=== PATIENT | male | born 1955 | race Caucasian/White ===

== ENCOUNTER → 2017-04-16 | Outpatient (CLI) | payer OTHER ==
[~2017-04-16] VITALS: Ht 170.2 cm; Wt 88.0 kg
[~2017-04-16] MED LIST: FLEXERIL PO; FLUTICASONE PRO16 GM NS; MOBIC15 MG PO; OMEPRAZOLE 20 M20 M1 PO; PRAVACHOL40 MG PO; ZYRTEC10 M5 PO
--- NOTE | ~2017-04-16 | HPC ---
[facility] [address] [place] [address] PAIN MANAGEMENT CONSULTATION Name: JONNA PAULINO Room #: REG [facility]..#: [id number] Admission: 04/16/17 Attend Phys: Duane Jim DO Discharge: Date of : 55 Report #: [id number] THIS REPORT FOR: //name// CC: Dr. Tanya Jim The patient is a very pleasant 62-year-old gentleman seen in consultation at the request of Dr. Martínez for consideration for epidural injection for ongoing lumbar radicular pain. The patient notes that he has had chronic back and right radicular pain, actually had epidural injections done blindly back in 1989 with some efficacy. Notes symptoms gradually began to recur without specific antecedent trauma and overuse. In December, his symptoms became quite problematic, symptoms eclipsing p.o. Tylenol and OTC NSAID. Pain is primarily low back, lateral thighs, left greater than right down to the feet. Notes some subjective paresthesia with episodic tingling into the medial 3 toes, right greater than left leg. Again, pain is a little more left than right. Denies bowel or bladder continence change or saddle anesthesia. Rates pain anywhere from 4-10 on a VAS. He is started on meloxicam, Flexeril and tramadol in December with only nominal efficacy. Uses an occasional massage. Works in the [employer] presently. Does daily stretching and effectively accomplishing reasonable PT, having failed conservative therapy, presents with ongoing pain that he describes as constant, shooting, aching, pulling, throbbing, sharp and stabbing. REVIEW OF SYSTEMS: Complete review of systems attached to chart and gone over with the patient. He is , seen in the company of his who is supportive. He does not smoke, drink alcohol to excess. History of hypertension, treated with pravastatin, some seasonal rhinitis for which he uses Flonase. Gastroesophageal reflux for which he uses omeprazole. Has had ENT surgery in the distant past. Retired for 30 years in [employer], currently works at [employer] in the [employer]. Continues to work despite pain. Pain impact score averages about 49/70. Physical exam shows a 5 feet 7 inch, 194 pound gentleman, BMI is 30.4 kilograms per meter squared. Blood pressure of 152/99, pulse 60, respirations 16. Cranial nerves 2-12 are grossly intact. Pupils are equal and reactive to light and accommodation. Extraocular muscles are intact. There is no nystagmus or lateral gaze deviation. Thyroid is modestly enlarged, no nodules are noted. Cervical range of motion is full. Upper extremity strength is preserved. Heart is regular and rhythmical without murmur. He does a physiologically split S2, lungs are clear to auscultation. Has somewhat of an endomorphic build with little truncal obesity. Lumbar flexion is limited to 45 degrees. Gait is tandem. Lower extremity strength is generally preserved with the exception that left leg shows slight decreased hip flexion, lower extremity extension. [address] [address] PAIN MANAGEMENT CONSULTATION Name: LORAJONNA Room #: [facility]#: [id number] Admission: 04/16/17 Attend Phys: Duane Jim DO Discharge: Date of : 55 Report #: [id number] Patellar and Achilles reflexes are preserved. Straight leg raise is grossly positive bilaterally at 30 degrees. Skin integument is intact. Diagnostic studies were reviewed including MRI of the lumbar spine from 01/13/2017 noting L4-L5 to have an 8 x 5 x 8 mm extruded fragment extending caudally in the anterior vertebral space from L4-L5. There is moderate left L3-L4 neural foraminal narrowing as well. ASSESSMENT: Symptomatic lumbar radiculopathy by clinical exam and history, recurrence of prior chronic issue, having failed conservative therapy for greater than 3 months. Positive neural tensioning symptoms correlating with diagnostic findings. RECOMMENDATIONS: 1. Continue meloxicam p.o. 2. Epidural injection under fluoroscopy today. 3. Follow up in 3 weeks for reevaluation. Cancel if greater than 80% improvement. Thank you for allowing me to participate in the patient's care. I will keep you abreast of his progress. PROCEDURE NOTE: Lumbar epidural injection under fluoroscopy. PROCEDURE: Lumbar epidural steroid injection. PROCEDURE NOTE: After both written and informed consent to include risk of spinal cord damage, increased pain, weakness and dural puncture, the patient was taken to the fluoroscopy suite, placed in the prone position. After sterile prep and drape, a skin wheal with lidocaine was raised. A 22-gauge epidural Tuohy needle was inserted in the midline at L4-L5 with good loss to resistance. Negative aspiration for cerebrospinal fluid or blood was noted. Then 1 mL of Omnipaque under biplanar fluoroscopy showed good spread within the epidural space. This was followed with 80 mg of triamcinolone plus 1 mL of 1.5% preservative-free Xylocaine, 0.5 mL Xylocaine was then injected to flush the needle; it was removed. The patient was monitored for an appropriate period of time and discharged in good and stable condition. <ELECTRONICALLY SIGNED> By: Duane Jim DO 04/17/17 1225 [id number] Duane Jim DO /nt
[2017-04-16 08:26] VITALS: BP 152/99
== END | disposition home or self-care (01) ==
LOC: PAIN 06:51
DX: M54.16 Radiculopathy, lumbar region (principal); G89.29 Other chronic pain; I10 Essential (primary) hypertension; K21.9 Gastro-esophageal reflux disease without esophagitis; Z98.890 Other specified postprocedural states; Z79.899 Other long term (current) drug therapy

== ENCOUNTER → 2017-12-10 | Outpatient (CLI) | payer OTHER ==
[~2017-12-10] VITALS: Ht 170.2 cm; Wt 90.7 kg
[~2017-12-10] MED LIST changes: +NORVASC5 MG PO
--- NOTE | ~2017-12-10 | HPC ---
[facility] [place] [address] [place] [address] PAIN MANAGEMENT CONSULTATION Name: JONNA PAULINO Room #: [facility] [id number] Admission: 12/10/17 Attend Phys: Duane Jim DO Discharge: Date of : 55 Report #: [id number] THIS REPORT FOR: //name// CC: GWEN Jim DATE OF SERVICE: 12/10/2017 The patient is a 62-year-old gentleman, prior seen in the Pain [facility] on 11/19/2017. He is given a second lumbar epidural injection at that time. He prior had his initial injection back in March. Second injection afforded good yet transient relief symptoms have begun to recur. It is in the low back, left anterior thigh. Pain is exacerbated with standing, walking, and bending. Rates the pain at 3 on a VAS. PHYSICAL EXAMINATION: Shows a 62-year-old gentleman. Blood pressure 152/98, pulse 75, respirations 16, BMI is 31.3 kg/m2. Rises from chair using the armrest, nominally antalgic gait. Does have objective decreased left hip flexion and lower extremity extension strength compared to the right. Patellar reflex is diminished on this side. ASSESSMENT: Symptomatic lumbar radiculopathy secondary to left L3 radicular pain. Does note L3-L4 to have moderate left neural foraminal stenosis as well as extruded disk fragment anterior to the space at L4-L5. RECOMMENDATION: Repeat epidural injection under fluoroscopy today at this time at L3-L4, left to midline. If this does not afford significant improvement of baseline function, we will have the patient follow up with Dr. Gwen Hoff for consideration for referral to Neurosurgery. Thank you for allowing me to participate in the patient's care. PROCEDURE: Lumbar epidural injection under fluoroscopy. PROCEDURE NOTE: After both written and informed consent to include risk of spinal cord damage, increased pain, weakness and dural puncture, the patient was taken to the fluoroscopy suite, placed in the prone position. After sterile prep and drape, a skin wheal with lidocaine was raised. A 22-gauge epidural Tuohy needle was inserted in the midline at L3-L4 with good loss to resistance. Negative aspiration for cerebrospinal fluid or blood was noted. Then 1 mL of Omnipaque under biplanar fluoroscopy showed good spread within the epidural space. This was followed with 80 mg of triamcinolone plus 1 mL of 1.5% preservative-free Xylocaine, 0.5 mL Xylocaine was then injected to flush the [address] [address] PAIN MANAGEMENT CONSULTATION Name: JONNA PAULINO Room #: REG [facility]#: [id number] Admission: 12/10/17 Attend Phys: Duane Jim DO Discharge: Date of : 55 Report #: [id number] needle; it was removed. The patient was monitored for an appropriate period of time and discharged in good and stable condition. <ELECTRONICALLY SIGNED> By: Duane Jim DO 12/12/17 [id number] Duane Jim DO /nt
[2017-12-10 13:44] VITALS: BP 152/98
== END | disposition home or self-care (01) ==
LOC: PAIN 07:07
DX: M51.16 Intervertebral disc disorders with radiculopathy, lumbar region (principal); Z98.890 Other specified postprocedural states; Z68.31 Body mass index [BMI] 31.0-31.9, adult